=== PATIENT | male | born 1940 | race Caucasian/White ===

== ENCOUNTER → 2021-12-27 12:55 | Outpatient (BNVA) | payer MEDICARE, OTHER, SELFPAY | PROVIDERS: PCP Internal Medicine; Visit Provider Psychiatry & Neurology Neurology | DX: G20 Parkinson's disease (principal); K59.00 Constipation, unspecified | CPT/HCPCS: 99212 ==

== ENCOUNTER → 2022-06-27 11:26 | Outpatient (BNVA) | payer MEDICARE, OTHER, SELFPAY | PROVIDERS: PCP Internal Medicine; Visit Provider Psychiatry & Neurology Neurology | DX: G20 Parkinson's disease (principal); K59.00 Constipation, unspecified | CPT/HCPCS: 99212 ==

== ENCOUNTER 2023-02-05 15:25 | Outpatient (AMB) | payer MEDICARE, OTHER, SELFPAY ==
--- NOTE | 2023-02-05 15:28 | A.OFFVIS_ITS ---
Intake Vital Signs 02/05/23 15:33 Height 5 ft 10 in Weight 141 lb 6 oz BMI 20.3 BP 162/90 H Blood Pressure Location Rt brachial Position Sitting Pulse 74 Pulse Source Pulse Oximeter Pulse Oximetry (%) 97 Oxygen Delivery Method Room Air Intake Visit Reasons: 4 mo follow up parkinson Intake Note: Patient presents for 4 month follow up Allergies No Known Allergies Allergy (Verified 02/05/23 15:35) Medication List - Last Reconciled 02/05/23 by Shannon Jean-Baptiste MD ascorbic acid (vitamin C) mg PO aspirin 325 mg PO DAILY calcium carbonate 500 mg PO BID carbidopa-levodopa 25-100 mg 1 tab PO .5 times a day ujlleayjafiy-Yu-pkzn-minerals tabs PO omega 5-kxl-dbj-fish oil 1,200 (144-216) mg (Fish Oil) caps PO polyethylene glycol 3350 (Miralax) 17 grams PO DAILY rasagiline 1 mg PO DAILY HPI HPI Comments History of Present Illness Details 82y/o male comes for follow up of parkinsons disease.He feels he is wearing off earlier. H eis only sinemet 25/100 1.5tabs tid ( last dose at 7pm and first dose at 8am He feels his meds are wearing off He feels he is slower. No hallucinations, no dizziness. He has dyskinesias but does not bother him. He has some festination and freezing in the morning. He exercises . No sleep issues He is independent in all his ADLs. he has end of dose slowing. Mood is stable No falls His appetite is good Miralax helps with bowel movements. [facility] Medical History BPH (benign prostatic hyperplasia) Parkinson's disease Surgical History H/O prostate biopsy Family History Father Cancer HTN (hypertension) DM (diabetes mellitus) Mother HTN (hypertension) Cancer Brother Cirrhosis Social History Household Members: Spouse Alcohol intake: current Alcohol intake frequency: holidays/special occasions only Patient Tobacco Use Status: Former Tobacco user Physical Exam Vital Signs: Last Vital Signs Pulse 74 02/05/23 15:33 BP 162/90 H 02/05/23 15:33 Pulse Ox 97 02/05/23 15:33 Oxygen Delivery Method Room Air 02/05/23 15:33 BMI result Body Mass Index 20.3 Const General: cooperative, healthy appearing, comfortable and no acute distress Nutritional Appearance: average body habitus Orientation/consciousness: patient oriented x3 Neuro Other: Mild dyskinesias No tremors Carmelo UE- decreased fine finger movements and foot taps.R>L gait- bradykinesia , no arm swing on right Increase tone carmelo R>L General: patient oriented x3 Cranial nerves: Yes Nystagmus not present and Yes Normal facial strength present Motor exam (neuro): 5/5 motor strength present throughout Coordination: qqqega-rx-ayey test normal Assessment & Plan Assessment & Plan (1) Parkinson's disease: Code(s): G20 - Parkinson's disease (2) Constipation: Code(s): K59.00 - Constipation, unspecified Plan Change sinemet 25/100 - 1 tabs 5 times a day [id number]-8pm will consider amantadine azilect 1mg qd Miralax as needed continue exercise Medications: Changed From carbidopa-levodopa 25-100 mg 1.5 tabs PO QID 540 tabs 6RF To carbidopa-levodopa 25-100 mg 1 tab PO .5 times a day 300 tabs 6RF Coding Level of Care Code Est Pt Level 4 (60171) Diagnoses Parkinson's disease G20 Constipation K59.00
[2023-02-05 15:33] VITALS: BP 162/90; PULSE 74; O2SAT 97; BMI 20.3
== END 2023-02-05 15:58 | disposition home or self-care (01) ==
PROVIDERS: Visit Provider Psychiatry & Neurology Neurology
DX: G20 Parkinson's disease (principal); K59.00 Constipation, unspecified
CPT/HCPCS: 99214

== ENCOUNTER → 2023-02-05 15:25 | Outpatient (BNVA) | payer MEDICARE, OTHER, SELFPAY | PROVIDERS: Visit Provider Psychiatry & Neurology Neurology | DX: G20 Parkinson's disease (principal); K59.00 Constipation, unspecified; Z79.82 Long term (current) use of aspirin; Z79.899 Other long term (current) drug therapy | CPT/HCPCS: 99212 ==

== ENCOUNTER 2023-08-07 12:34 | Outpatient (AMB) | payer MEDICARE, OTHER, SELFPAY ==
--- NOTE | 2023-08-07 12:50 | MHC.OFFVIS ---
Intake Vital Signs 08/07/23 12:52 Height 5 ft 10 in Weight 140 lb BMI 20.1 BP 116/68 Blood Pressure Location Rt brachial Position Sitting Respiration 16 Pulse 80 Pulse Source Palpation Intake Visit Reasons: 2mo follow up parkinson-CONFIRMED Intake Note: Pt presents for a 6 month follow up for Parkinson's. Bowstring Maker Required: No Allergies No Known Allergies Allergy (Verified 08/07/23 12:52) Medication List - Last Reconciled 08/07/23 by Shannon Jean-Baptiste MD ascorbic acid (vitamin C) mg PO aspirin 325 mg PO DAILY calcium carbonate 500 mg PO BID carbidopa-levodopa 25-100 mg 1 tab PO .5 times a day diazepam 1/2 tab 30min prior to dental appointment 1/ tab 5 min prior to appointment orally PRN; vvdytljxegai-Ju-qeaz-minerals tabs PO omega 2-orb-zrt-fish oil 1,200 (144-216) mg (Fish Oil) caps PO polyethylene glycol 3350 (Miralax) 17 grams PO DAILY rasagiline 1 mg PO DAILY HPI HPI Comments History of Present Illness Details 82y/o male comes for follow up of parkinsons disease.He has dyskinesias lasting 30 minutes after each dose. He still feels he has early wearing.He has dizziness occaisonally He feels his meds are wearing off He feels he is slower. No hallucinations, no dizziness. He has some festination and freezing in the morning. He exercises . No sleep issues He is independent in all his ADLs. he has end of dose slowing. Mood is stable No falls His appetite is good Miralax helps with bowel movements. [facility] Medical History (Updated 08/07/23 @ 13:03 by Shannon Jean-Baptiste MD) Parkinson's disease with dyskinesia, without mention of fluctuations BPH (benign prostatic hyperplasia) Parkinson's disease Surgical History H/O prostate biopsy Family History Father Cancer HTN (hypertension) DM (diabetes mellitus) Mother HTN (hypertension) Cancer Brother Cirrhosis Social History Household Members: Spouse Alcohol intake: current Alcohol intake frequency: holidays/special occasions only Patient Tobacco Use Status: Former Tobacco user Physical Exam Vital Signs: Last Vital Signs Pulse 80 08/07/23 12:52 Resp 16 08/07/23 12:52 BP 116/68 08/07/23 12:52 BMI result Body Mass Index 20.1 Const General: cooperative, healthy appearing, comfortable and no acute distress Nutritional Appearance: average body habitus Orientation/consciousness: patient oriented x3 Neuro Other: Mild dyskinesias No tremors Carmelo UE- decreased fine finger movements and foot taps.R>L gait- bradykinesia , no arm swing on right Increase tone carmelo R>L General: patient oriented x3 Cranial nerves: Yes Nystagmus not present and Yes Normal facial strength present Motor exam (neuro): 5/5 motor strength present throughout Coordination: eigebe-gh-cltl test normal Assessment & Plan Assessment & Plan (1) Parkinson's disease: Code(s): G20 - Parkinson's disease (2) Constipation: Code(s): K59.00 - Constipation, unspecified (3) Parkinson's disease with dyskinesia, without mention of fluctuations: Code(s): G20.B1 - Parkinson's disease with dyskinesia, without mention of fluctuations Plan Sinemet 25/100 - 1 tabs 5 times a day [id number]-5pm-8pm amantadine 100 mg 1 /2 tab bid azilect 1mg qd Miralax as needed continue exercise Medications: New amantadine HCl 1/2 tab bid orally 2 times a day; 30 tabs 1RF Coding Level of Care Code Est Pt Level 4 (65029) Diagnoses Parkinson's disease G20 Constipation K59.00 Parkinson's disease with dyskinesia, without mention of fluctuations G20.B1
[2023-08-07 12:52] VITALS: BP 116/68; PULSE 80; RESP 16; BMI 20.1
== END 2023-08-07 13:18 | disposition home or self-care (01) ==
PROVIDERS: PCP Internal Medicine; Visit Provider Psychiatry & Neurology Neurology
DX: G20.B2 Parkinson's disease with dyskinesia, with fluctuations (principal); K59.00 Constipation, unspecified
CPT/HCPCS: 99214

== ENCOUNTER → 2023-08-07 12:34 | Outpatient (BNVA) | payer MEDICARE, OTHER, SELFPAY | PROVIDERS: PCP Internal Medicine; Visit Provider Psychiatry & Neurology Neurology | DX: G20.B1 Parkinson's disease with dyskinesia, without mention of fluctuations (principal); K59.00 Constipation, unspecified; Z79.899 Other long term (current) drug therapy | CPT/HCPCS: 99212 ==

== ENCOUNTER 2023-12-06 12:32 | Outpatient (AMB) | payer MEDICARE, OTHER, SELFPAY ==
--- NOTE | 2023-12-06 12:45 | A.OFFVIS_ITS ---
Vital Signs 12/06/23 12:52 Height 5 ft 10 in Weight 144 lb 2 oz BMI 20.7 BP 115/72 Blood Pressure Location Lt brachial Position Sitting Pulse 70 Pulse Source Pulse Oximeter Pulse Oximetry (%) 95 Oxygen Delivery Method Room Air Intake Visit Reasons: 3 mo f/u - LVM w/add Intake Note: Patient presents for 3 month f/u. When taking second pill of Carbidopa-Levodopa felling like the second pill is not working. Wondering if the pills should be rearranged. Allergies No Known Allergies Allergy (Verified 12/06/23 12:52) Medication List - Last Reconciled 12/06/23 by Shannon Jean-Baptiste MD ascorbic acid (vitamin C) mg PO aspirin 325 mg PO DAILY calcium carbonate 500 mg PO BID carbidopa-levodopa 23.75-95 mg ER (Rytary) 2 caps PO TID diazepam 1/2 tab 30min prior to dental appointment 1/ tab 5 min prior to appointment orally PRN; bzsxjhdyacmi-Ri-jrvw-minerals tabs PO omega 0-dlv-meu-fish oil 1,200 (144-216) mg (Fish Oil) caps PO polyethylene glycol 3350 (Miralax) 17 grams PO DAILY rasagiline 1 mg PO DAILY HPI Comments Details: 82y/o male comes for follow up of parkinsons disease.He has dyskinesias lasting 30 minutes after each dose.He was started on amantadine 50mg bid but he did not notice nay improvement but he has more dykinsias ? hallucinations He still feels he has early wearing.He has dizziness occaisonally He feels his meds are wearing off He feels he is slower. No hallucinations, no dizziness. He has some festination and freezing in the morning. He exercises . No sleep issues He is independent in all his ADLs. he has end of dose slowing. Mood is stable No falls His appetite is good Miralax helps with bowel movements. [facility] Medical History (Updated 12/06/23 @ 13:05 by Shannon Jean-Baptiste MD) Parkinson's disease with fluctuating manifestations Parkinson's disease with dyskinesia, without mention of fluctuations BPH (benign prostatic hyperplasia) Parkinson's disease Surgical History H/O prostate biopsy Family History Father Cancer HTN (hypertension) DM (diabetes mellitus) Mother HTN (hypertension) Cancer Brother Cirrhosis Social History Household Members: Spouse Alcohol intake: current Alcohol intake frequency: holidays/special occasions only Patient Tobacco Use Status: Former Tobacco user Physical Exam Vital Signs: Last Vital Signs Pulse 70 12/06/23 12:52 BP 115/72 12/06/23 12:52 Pulse Ox 95 12/06/23 12:52 Oxygen Delivery Method Room Air 12/06/23 12:52 BMI result Body Mass Index 20.7 Const General: cooperative, healthy appearing, comfortable and no acute distress Nutritional Appearance: average body habitus Orientation/consciousness: patient oriented x3 Neuro Other: Moderate dyskinesias - 3 hrs since his last dose No tremors Carmelo UE- decreased fine finger movements and foot taps.R>L gait- bradykinesia , no arm swing on right Increase tone carmelo R>L General: patient oriented x3 Cranial nerves: Yes Nystagmus not present and Yes Normal facial strength present Motor exam (neuro): 5/5 motor strength present throughout Coordination: wobrxu-fn-jeem test normal Assessment & Plan Assessment & Plan (1) Parkinson's disease with dyskinesia, without mention of fluctuations: Code(s): G20.B1 - Parkinson's disease with dyskinesia, without mention of fluctuations Category: Medical (2) Parkinson's disease with fluctuating manifestations: Code(s): G20.A2 - Parkinson's disease without dyskinesia, with fluctuations Category: Medical Plan I will trial patient on Rytary 23.75/95 2 caps tid to improve dyskinesias and fluctuations D/CSinemet 25/100 - 1 tabs 5 times a day [id number]-5pm-8pm D/C amantadine 100 mg 1 /2 tab bid azilect 1mg qd Miralax as needed continue exercise Medications: New carbidopa-levodopa 23.75-95 mg ER (Rytary) divide evenly over waking hours 2 caps PO TID 180 caps 6RF Discontinued carbidopa-levodopa 25-100 mg Discontinued Reason: Doctor's Order 1 tab PO .5 times a day 300 tabs 6RF amantadine HCl Discontinued Reason: Doctor's Order 1/2 tab bid orally 2 times a day; 30 tabs 6RF Coding Level of Care Code Est Pt Level 4 (46807) Complex EM visit Add On G2211 Diagnoses Parkinson's disease with dyskinesia, without mention of fluctuations G20.B1 Parkinson's disease with fluctuating manifestations G20.A2
[2023-12-06 12:52] VITALS: BP 115/72; PULSE 70; O2SAT 95; BMI 20.7
== END 2023-12-06 13:16 | disposition home or self-care (01) ==
PROVIDERS: PCP Internal Medicine; Visit Provider Psychiatry & Neurology Neurology
DX: G20.B1 Parkinson's disease with dyskinesia, without mention of fluctuations (principal); G20.A2 Parkinson's disease without dyskinesia, with fluctuations
CPT/HCPCS: 99214; G2211

== ENCOUNTER → 2023-12-06 12:32 | Outpatient (BNVA) | payer MEDICARE, OTHER, SELFPAY | PROVIDERS: PCP Internal Medicine; Visit Provider Psychiatry & Neurology Neurology | DX: G20.B2 Parkinson's disease with dyskinesia, with fluctuations (principal) | CPT/HCPCS: 99212 ==

== ENCOUNTER 2024-02-06 09:32 | Outpatient (AMB) | payer MEDICARE, OTHER, SELFPAY ==
--- NOTE | 2024-02-06 09:43 | A.OFFVIS_ITS ---
Vital Signs 02/06/24 09:45 Height 5 ft 10 in Weight 145 lb BMI 20.8 BP 132/68 Blood Pressure Location Rt brachial Position Sitting Respiration 16 Pulse 68 Pulse Source Pulse Oximeter Pulse Oximetry (%) 96 Oxygen Delivery Method Room Air Intake Visit Reasons: 2 mo f/u - Confirmed Intake Note: Pt presents for 2 month follow up for Parkinson's. Outreach Consultant Required: No Allergies No Known Allergies Allergy (Verified 02/06/24 09:43) HPI Comments Details: 83y/o male comes for follow up of parkinsons disease. He is on rytary 3 caps tid which ahs helpe dhis fluctuations and wearing off. But after his first dose in the morning it takes 30-60 minutes for him to respond. Dyskinesias are milder.. No hallucinations, no dizziness. He has some festination and freezing in the morning. He exercises . No sleep issues He is independent in all his ADLs. he has end of dose slowing. Mood is stable No falls His appetite is good Miralax helps with bowel movements. [facility] Medical History Parkinson's disease with fluctuating manifestations Parkinson's disease with dyskinesia, without mention of fluctuations BPH (benign prostatic hyperplasia) Parkinson's disease Surgical History H/O prostate biopsy Family History Father Cancer HTN (hypertension) DM (diabetes mellitus) Mother HTN (hypertension) Cancer Brother Cirrhosis Social History Household Members: Spouse Alcohol intake: current Alcohol intake frequency: holidays/special occasions only Patient Tobacco Use Status: Former Tobacco user Physical Exam Vital Signs: Last Vital Signs Pulse 68 02/06/24 09:45 Resp 16 02/06/24 09:45 BP 132/68 02/06/24 09:45 Pulse Ox 96 02/06/24 09:45 Oxygen Delivery Method Room Air 02/06/24 09:45 BMI result Body Mass Index 20.8 Const General: cooperative, healthy appearing, comfortable and no acute distress Nutritional Appearance: average body habitus Orientation/consciousness: patient oriented x3 Neuro Other: Mild dyskinesias - No tremors Carmelo UE- decreased fine finger movements and foot taps.R>L gait- good stride mild slowness , mild decreased arm swing on the right Increase tone carmelo R>L General: patient oriented x3 Cranial nerves: Yes Nystagmus not present and Yes Normal facial strength present Motor exam (neuro): 5/5 motor strength present throughout Coordination: vqcpaw-nh-kgfd test normal Assessment & Plan Assessment & Plan (1) Parkinson's disease with dyskinesia, without mention of fluctuations: Code(s): G20.B1 - Parkinson's disease with dyskinesia, without mention of fluctuations Category: Medical (2) Parkinson's disease with fluctuating manifestations: Code(s): G20.A2 - Parkinson's disease without dyskinesia, with fluctuations Category: Medical Plan Continue Rytary 23.75/95 3 caps tid to improve dyskinesias and fluctuations azilect 1mg qd Miralax as needed continue exercise Coding Level of Care Code Est Pt Level 4 (61885) Complex EM visit Add On G2211 Diagnoses Parkinson's disease with dyskinesia, without mention of fluctuations G20.B1 Parkinson's disease with fluctuating manifestations G20.A2
[2024-02-06 09:45] VITALS: BP 132/68; PULSE 68; RESP 16; O2SAT 96; BMI 20.8
== END 2024-02-06 10:26 | disposition home or self-care (01) ==
PROVIDERS: PCP Internal Medicine; Visit Provider Psychiatry & Neurology Neurology
DX: G20.B1 Parkinson's disease with dyskinesia, without mention of fluctuations (principal); G20.A2 Parkinson's disease without dyskinesia, with fluctuations
CPT/HCPCS: 99214; G2211

== ENCOUNTER → 2024-02-06 09:32 | Outpatient (BNVA) | payer MEDICARE, OTHER, SELFPAY | PROVIDERS: PCP Internal Medicine; Visit Provider Psychiatry & Neurology Neurology | DX: G20.B2 Parkinson's disease with dyskinesia, with fluctuations (principal); Z79.899 Other long term (current) drug therapy | CPT/HCPCS: 99212 ==

== ENCOUNTER 2024-08-14 14:01 | Outpatient (AMB) | payer MEDICARE, OTHER, SELFPAY ==
--- NOTE | 2024-08-14 14:02 | MHC.OFFVIS ---
Vital Signs 08/14/24 14:03 Height 5 ft 10 in Weight 137 lb BMI 19.7 BP 140/90 H Blood Pressure Location Rt brachial Position Sitting Intake Visit Reasons: Follow up Intake Note: Patient presents for follow up Allergies No Known Allergies Allergy (Verified 08/14/24 14:11) Medication List - Last Reconciled 08/14/24 by Shannon Jean-Baptiste MD ascorbic acid (vitamin C) mg PO calcium carbonate 500 mg PO BID carbidopa-levodopa 23.75-95 mg ER (Rytary) 3- 2-2-2 orally 4 times a day; divide evenly over waking hours diazepam 1/2 tab 30min prior to dental appointment 1/ tab 5 min prior to appointment orally PRN; xdcaigxppehd-Kd-lwjv-minerals tabs PO omega 4-bps-hif-fish oil 1,200 (144-216) mg (Fish Oil) caps PO polyethylene glycol 3350 (Miralax) 17 grams PO DAILY rasagiline 1 mg PO DAILY tadalafil 2.5 mg PO DAILY HPI Comments Details: 83y/o male comes for follow up of parkinsons disease.He is doing good. He is on rytary 23/95 3 caps tid which has his fluctuations and wearing off. But after his first dose in the morning it takes 30-60 minutes for him to respond.He takes 8am-2pm and 7pm Dyskinesias are milder.. No hallucinations, no dizziness. He has some festination and freezing in the morning. He exercises . He sleeps good and takes along nap during daytime. He is independent in all his ADLs. Mood is stable No falls His appetite is good Miralax helps with bowel movements. [facility] Medical History Parkinson's disease with fluctuating manifestations Parkinson's disease with dyskinesia, without mention of fluctuations BPH (benign prostatic hyperplasia) Parkinson's disease Surgical History H/O prostate biopsy Family History Father Cancer HTN (hypertension) DM (diabetes mellitus) Mother HTN (hypertension) Cancer Brother Cirrhosis Social History Household Members: Spouse Alcohol intake: current Alcohol intake frequency: holidays/special occasions only Patient Tobacco Use Status: Former Tobacco user Physical Exam Vital Signs: Last Vital Signs BP 140/90 H 08/14/24 14:03 BMI result Body Mass Index 19.7 Const General: cooperative, healthy appearing, comfortable and no acute distress Nutritional Appearance: average body habitus Orientation/consciousness: patient oriented x3 Neuro Other: No dyskinesias - No tremors Carmelo UE- decreased fine finger movements and foot taps.R>L gait- good stride mild slowness , mild decreased arm swing on the right Increase tone carmelo R>L General: patient oriented x3 Cranial nerves: Yes Nystagmus not present and Yes Normal facial strength present Motor exam (neuro): 5/5 motor strength present throughout Coordination: hjqwtz-al-jyjq test normal Assessment & Plan Assessment & Plan (1) Parkinson's disease with fluctuating manifestations: Code(s): G20.A2 - Parkinson's disease without dyskinesia, with fluctuations Category: Medical Qualifiers: Dyskinesia presence: with dyskinesia Qualified Code(s): G20.B2 - Parkinson's disease with dyskinesia, with fluctuations Plan Change Rytary 23.75/95- 3-2-2-2- to improve dyskinesias and fluctuations azilect 1mg qd Miralax as needed continue exercise Medications: Changed From carbidopa-levodopa 23.75-95 mg ER (Rytary) divide evenly over waking hours 3 caps PO TID 180 caps 6RF To carbidopa-levodopa 23.75-95 mg ER (Rytary) 3- 2-2-2 orally 4 times a day; divide evenly over waking hours 180 caps 6RF Coding Level of Care Code Est Pt Level 4 (27193) Complex EM visit Add On G2211 Diagnoses Parkinson's disease with dyskinesia and fluctuating manifestations G20.B2 Dyskinesia presence: with dyskinesia
[2024-08-14 14:03] VITALS: BP 140/90; BMI 19.7
== END 2024-08-14 14:30 | disposition home or self-care (01) ==
PROVIDERS: PCP Internal Medicine; Visit Provider Psychiatry & Neurology Neurology
DX: G20.B2 Parkinson's disease with dyskinesia, with fluctuations (principal)
CPT/HCPCS: 99214; G2211

== ENCOUNTER → 2024-08-14 14:01 | Outpatient (BNVA) | payer MEDICARE, OTHER, SELFPAY | PROVIDERS: PCP Internal Medicine; Visit Provider Psychiatry & Neurology Neurology | DX: G20.B2 Parkinson's disease with dyskinesia, with fluctuations (principal) | CPT/HCPCS: 99212 ==

== ENCOUNTER 2024-11-27 10:45 | Outpatient (AMB) | payer MEDICARE, OTHER, SELFPAY ==
--- NOTE | 2024-11-27 10:44 | A.OFFVIS_ITS ---
Intake Visit Reasons: Follow up after hosp discharge-Conf Intake Note: Patient presents for follow after hospital discharge Allergies No Known Allergies Allergy (Verified 11/27/24 10:46) HPI Comments Details: 83y/o male calls for follow up of parkinsons disease after recent hospitalizations. .He was hospitalized for left hip fracture ( Aug 2024 ) , flu, kidney infection - he was at [facility] - unfortunately he received a higher dose of carbidopa /levodopa and he developed severe psychosis. Once his medications were decreased his psychosis resolved. He is on rytary 3 caps qid now. But every time he stands his blood pressure drops and he has not been able to walk Dyskinesias are milder.. No hallucinationsHe also ahs a catheter now . 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 He sleeps good and takes along nap during daytime. Mood is stable His appetite is good Miralax helps with bowel movements. [facility] Medical History Parkinson's disease with fluctuating manifestations Parkinson's disease with dyskinesia, without mention of fluctuations BPH (benign prostatic hyperplasia) Parkinson's disease Surgical History H/O prostate biopsy Family History Father Cancer HTN (hypertension) DM (diabetes mellitus) Mother HTN (hypertension) Cancer Brother Cirrhosis Social History Household Members: Spouse Alcohol intake: current Alcohol intake frequency: holidays/special occasions only Patient Tobacco Use Status: Former Tobacco user Physical Exam Const General: cooperative Orientation/consciousness: patient oriented x3 Neuro General: patient oriented x3 Telehealth Telehealth Telehealth Platform: Telephone Location of provider rendering services: practice address Location of patient: address on file Patient Identification confirmed using: Name, : Yes Telehealth method: voice only Patient verbally consented to treatment: Yes Patient verbally consented to billing insurance company: Yes Patient informed of any privacy concerns related to visit: Yes Minutes spent on Phone/Video with Pt.: 22 Assessment & Plan Assessment & Plan (1) Parkinson's disease with fluctuating manifestations: Code(s): G20.A2 - Parkinson's disease without dyskinesia, with fluctuations Category: Medical Qualifiers: Dyskinesia presence: with dyskinesia Qualified Code(s): G20.B2 - Parkinson's disease with dyskinesia, with fluctuations Plan Change [facility] 23.75/95- 3-2-2-2- to improve dyskinesias and fluctuations azilect 1mg qd Miralax as needed continue exercise Coding Level of Care Code Tele Est Pt Level 4 (31326) Diagnoses Parkinson's disease with dyskinesia and fluctuating manifestations G20.B2 Dyskinesia presence: with dyskinesia Time Spent (min) 22
--- OUTSIDE RECORDS SUMMARY | 2024-11-27 12:12 | XMS_ITS | Clinical Summary ---
Author Organization Unknown Care Team Providers Care Tunnel Elastic Operator Zigzag Name Role Phone RENE FORMAN Unavailable Unavaila lauren BARBOSA RN, DARÍO Unavailable Unavailable PENDRISS RETARDER OPERATOR, KURT Unavailable Unavailable DUSTIN PT, LEA Unavailable Unavailable FECTEAU OIL DELIVERER, VAL Unavailable Unavailable STARSIAK OT, YOVANI Unavailable Unavailabl e Payers Payer Name Policy Type Policy Number Effective Date Expira tion Date MEDICARE.NGS.PDGM [id number] Problems Condition Name Condition Details Condition Category Status Onset Date Resolution Date Last Treatment Date Treating Clinician Comments URINARY TRACT INFECTION, SITE NOT SPECIFIED Active 11-10 00:00: 00 BACTERIAL INFECTION, UNSPECIFIED Active 11-23 00:00: 00 HYPO-OSMOLAL ITY AND HYPONATREMIA Active 11-23 00:00: 00 REM SLEEP BEHAVIOR DISORDER Active 11-23 00:00: 00 ORTHOSTATIC HYPOTENSION Active 11-23 00:00: 00 UNSPECIFIED PROTEIN-DALTON SERGEI MALNUTRITION Active 11-23 00:00: 00 UNSP FRACTURE OF UNSP PUBIS, SUBS FOR FX W ROUTN HEAL Active 11-23 00:00: 00 OTHER TOXIC ENCEPHALOPAT HY Active 09-26 00:00: 00 OBSTRUCTIVE AND REFLUX UROPATHY, UNSPECIFIED Active 09-26 00:00: 00 PARKINSON'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, W/O MENTION OF FLUCTUATIONS Active 07-23 00:00: 00 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, UNSP SEVERT, WITH AGITATION Active 07-23 00:00: 00 BENIGN PROSTATIC HYPERPLASIA WITH LOWER URINARY TRACT SYMP Active - 00:00: 00 OTHER RETENTION OF URINE Active - 00:00: 00 HEMATURIA, UNSPECIFIED Active 07-23 00:00: 00 NONRHEUMATIC AORTIC (VALVE) STENOSIS Active 07-23 00:00: 00 ANEMIA, UNSPECIFIED Active 07-23 00:00: 00 DYSPHAGIA, OROPHARYNGEA L PHASE Active 07-23 00:00: 00 JAIL (CURRENT) USE OF ASPIRIN Active 07-23 00:00: 00 PERSONAL HISTORY OF NICOTINE DEPENDENCE Active 07-23 00:00: 00 HISTORY OF FALLING Active 07-23 00:00: 00 Allergies, Adverse Reactions, Alerts Allergy Name Allergy Type Status Severity Reaction(s) Onset Date Inactive Date Treating Clinician Comments NO KNOWN ALLERGIES Propensity to adverse reactions Active 11-24 14:24: 49 Vital Signs Vital Name Observation Time Observation Value Commen ts Temperature 2024-11-27 10:16:00.000 96.9 [degF] Temperature 2024-11-24 14:51:00.000 97.3 [degF] BMI (%) 2024-11-24 14:39:33.000 17 kg/m2 Height 2024-11-24 14:39:05.000 68 [in_us] Pulse 2024-11-27 10:16:00.000 64 /min Pulse 2024-11-24 14:51:00.000 84 /min O2 Saturation (%) 2024-11-27 10:16:00.000 99 % O2 Saturation (%) 2024-11-24 14:51:00.000 97 % Respirations 2024-11-27 10:16:00.000 16 /min Respirations 2024-11-24 14:51:00.000 18 /min Weight (lbs) 2024-11-24 14:39:33.000 117 [lb_av] Systolic Blood Pressure 2024-11-27 10:16:00.000 92 mm[ Hg] Systolic Blood Pressure 2024-11-24 14:51:00.000 94 mm[ Hg] Diastolic Blood Pressure 2024-11-27 10:16:00.000 58 mm [Hg] Diastolic Blood Pressure 2024-11-24 14:51:00.000 62 mm [Hg] Plan of Treatment Planned Activity Planned Date Details Comments Future Scheduled Test RN TO OBSE RVE, ASSESS, EVALUATE, AND DEVELOP AN INDIVIDUALIZED PLAN OF CARE. AGENCY MAY ACCEPT ORDERS FROM CONSULTING PHYSICIANS. RN TO OBSERVE AND ASSESS, RETARDER OPERATOR/BEHAVIORAL MEDICAL DIRECTOR TO OBSERVE FOR RISK FOR FALLS AND INSTRUCT IN FALL PREVENTION, HOME SAFETY, MEDICATION MANAGEMENT, INFECTION PREVENTION, AND NUTRITION MANAGEMENT. RN/RETARDER OPERATOR/BEHAVIORAL MEDICAL DIRECTOR NURSE MAY PERFORM O2 SATURATION LEVEL ON ADMISSION AND PRN FOR RN TO ASSESS/RETARDER OPERATOR TO OBSERVE PATIENT, WITH NOTIFICATION TO THE PHYSICIAN IF SATURATION IS 90% IN THE ABSENCE OF MORE SPECIFIC PARAMETERS FROM THE PHYSICIAN. AGENCY MAY PERFORM A RESUMPTION OF CARE VISIT FOLLOWING ANY HOSPITAL ADMISSION. RN/RETARDER OPERATOR/BEHAVIORAL MEDICAL DIRECTOR TO MONITOR CO-MORBID CONDITIONS LISTED ON THE PLAN OF CARE AND ANY NEW CONDITIONS THAT PRESENT THEMSELVES DURING THIS EPISODE TO IDENTIFY CHANGES AND INTERVENE TO MINIMIZE COMPLICATIONS. [code = RN TO OBSERVE, ASSESS, EVALUATE, AND DEVELOP AN INDIVIDUALIZED PLAN OF CARE. AGENCY MAY ACCEPT ORDERS FROM CONSULTING PHYSICIANS. RN TO OBSERVE AND ASSESS, RETARDER OPERATOR/BEHAVIORAL MEDICAL DIRECTOR TO OBSERVE FOR RISK FOR FALLS AND INSTRUCT IN FALL PREVENTION, HOME SAFETY, MEDICATION MANAGEMENT, INFECTION PREVENTION, AND NUTRITION MANAGEMENT. RN/RETARDER OPERATOR/BEHAVIORAL MEDICAL DIRECTOR NURSE MAY PERFORM O2 SATURATION LEVEL ON ADMISSION AND PRN FOR RN TO ASSESS/RETARDER OPERATOR TO OBSERVE PATIENT, WITH NOTIFICATION TO THE PHYSICIAN IF SATURATION IS 90% IN THE ABSENCE OF MORE SPECIFIC PARAMETERS FROM THE PHYSICIAN. AGENCY MAY PERFORM A RESUMPTION OF CARE VISIT FOLLOWING ANY HOSPITAL ADMISSION. RN/RETARDER OPERATOR/BEHAVIORAL MEDICAL DIRECTOR TO MONITOR CO-MORBID CONDITIONS LISTED ON THE PLAN OF CARE AND ANY NEW CONDITIONS THAT PRESENT THEMSELVES DURING THIS EPISODE TO IDENTIFY CHANGES AND INTERVENE TO MINIMIZE COMPLICATIONS.] Future Scheduled Test MEDICATION MANAGEMENT; RN/RETARDER OPERATOR/BEHAVIORAL MEDICAL DIRECTOR TO REVIEW MEDICATIONS FOR INTERACTIONS, EFFECTIVENESS OF DRUG THERAPY, AND SIGNS/SYMPTOMS OF ADVERSE REACTIONS. MAY INSTRUCT AND REINFORCE MEDICATION TEACHING RELATED TO THE USE OF MEDICATIONS, DOSAGE, FREQUENCY, PURPOSE, SIDE EFFECTS, AND TO REPORT COMPLICATIONS. [code = MEDICATION MANAGEMENT; RN/RETARDER OPERATOR/BEHAVIORAL MEDICAL DIRECTOR TO REVIEW MEDICATIONS FOR INTERACTIONS, EFFECTIVENESS OF DRUG THERAPY, AND SIGNS/SYMPTOMS OF ADVERSE REACTIONS. MAY INSTRUCT AND REINFORCE MEDICATION TEACHING RELATED TO THE USE OF MEDICATIONS, DOSAGE, FREQUENCY, PURPOSE, SIDE EFFECTS, AND TO REPORT COMPLICATIONS.] Future Scheduled Test RISK FOR H OSPITALIZATION; RN TO ASSESS/TEACH, BEHAVIORAL MEDICAL DIRECTOR/RETARDER OPERATOR TO OBSERVE/TEACH PATIENT/CAREGIVER ON RISK FOR HOSPITALIZATION/EMERGENCY ROOM VISITS, TEACH SIGNS AND SYMPTOMS THAT PUT PATIENT AT RISK, WHEN TO NOTIFY NURSE/PHYSICIAN OF COMPLICATIONS/DECLINE, AND WHEN TO CALL 911. [code = RISK FOR HOSPITALIZATION; RN TO ASSESS/TEACH, BEHAVIORAL MEDICAL DIRECTOR/RETARDER OPERATOR TO OBSERVE/TEACH PATIENT/CAREGIVER ON RISK FOR HOSPITALIZATION/EMERGENCY ROOM VISITS, TEACH SIGNS AND SYMPTOMS THAT PUT PATIENT AT RISK, WHEN TO NOTIFY NURSE/PHYSICIAN OF COMPLICATIONS/DECLINE, AND WHEN TO CALL 911.] Future Scheduled Test RN/RETARDER OPERATOR/BEHAVIORAL MEDICAL DIRECTOR TO PERFORM/TEACH PATIENT/CAREGIVER WOUND CARE TO STAGE 2 COCCYX, CAREGIVER/FAMILY TO CLEANSE WITH NS AND APPLY BARRIER CREAM. [code = RN/RETARDER OPERATOR/BEHAVIORAL MEDICAL DIRECTOR TO PERFORM/TEACH PATIENT/CAREGIVER WOUND CARE TO STAGE 2 COCCYX, CAREGIVER/FAMILY TO CLEANSE WITH NS AND APPLY BARRIER CREAM.] Future Scheduled Test PAIN MANAG EMENT; RN TO ASSESS AND TEACH, BEHAVIORAL MEDICAL DIRECTOR/RETARDER OPERATOR TO OBSERVE AND TEACH AND PROVIDE EDUCATION ON PAIN MANAGEMENT TECHNIQUES. [code = PAIN MANAGEMENT; RN TO ASSESS AND TEACH, BEHAVIORAL MEDICAL DIRECTOR/RETARDER OPERATOR TO OBSERVE AND TEACH AND PROVIDE EDUCATION ON PAIN MANAGEMENT TECHNIQUES.] Future Scheduled Test FALL REDUC TION MANAGEMENT; RN TO ASSESS AND OBSERVE, RETARDER OPERATOR/BEHAVIORAL MEDICAL DIRECTOR TO OBSERVE FALL RISK FACTORS AND EDUCATE PATIENT/CAREGIVER ON STRATEGIES TO MINIMIZE THE RISK OF FALLING. [code = FALL REDUCTION MANAGEMENT; RN TO ASSESS AND OBSERVE, RETARDER OPERATOR/BEHAVIORAL MEDICAL DIRECTOR TO OBSERVE FALL RISK FACTORS AND EDUCATE PATIENT/CAREGIVER ON STRATEGIES TO MINIMIZE THE RISK OF FALLING.] Future Scheduled Test PHYSICAL T HERAPIST TO EVALUATE FOR BALANCE, STRENGTHENING AND ENDURANCE. [code = PHYSICAL THERAPIST TO EVALUATE FOR BALANCE, STRENGTHENING AND ENDURANCE. ] Future Scheduled Test OCCUPATION AL THERAPIST TO EVALUATE FOR ADL SAFETY. [code = OCCUPATIONAL THERAPIST TO EVALUATE FOR ADL SAFETY. ] Future Scheduled Test GENITOURIN MARY ELLEN MANAGEMENT; RN TO ASSESS AND TEACH, RETARDER OPERATOR/BEHAVIORAL MEDICAL DIRECTOR TO OBSERVE AND TEACH RELATED TO ALTERED GENITOURINARY STATUS TO MINIMIZE COMPLICATIONS AND REDUCE HOSPITALIZATION. [code = GENITOURINARY MANAGEMENT; RN TO ASSESS AND TEACH, RETARDER OPERATOR/BEHAVIORAL MEDICAL DIRECTOR TO OBSERVE AND TEACH RELATED TO ALTERED GENITOURINARY STATUS TO MINIMIZE COMPLICATIONS AND REDUCE HOSPITALIZATION.] Future Scheduled Test INDWELLING URINARY CATHETER MANAGEMENT; RN/RETARDER OPERATOR/BEHAVIORAL MEDICAL DIRECTOR TO INSTRUCT PATIENT / CAREGIVER ON INDWELLING URINARY CATHETER MANAGEMENT INCLUDING CARE OF CATHETER, SIGN AND SYMPTOMS OF COMPLICATIONS, PERINEAL CARE, TUBE AND BAG PLACEMENT, PREVENTION OF INFECTION AND SKIN BREAKDOWN. [code = INDWELLING URINARY CATHETER MANAGEMENT; RN/RETARDER OPERATOR/BEHAVIORAL MEDICAL DIRECTOR TO INSTRUCT PATIENT / CAREGIVER ON INDWELLING URINARY CATHETER MANAGEMENT INCLUDING CARE OF CATHETER, SIGN AND SYMPTOMS OF COMPLICATIONS, PERINEAL CARE, TUBE AND BAG PLACEMENT, PREVENTION OF INFECTION AND SKIN BREAKDOWN.] Future Scheduled Test PRN VISITS ; NUMBER OF RN/RETARDER OPERATOR/BEHAVIORAL MEDICAL DIRECTOR VISITS: 3 RN/RETARDER OPERATOR/BEHAVIORAL MEDICAL DIRECTOR TO PERFORM: /SHORT ASSESSMENT FOR THE FOLLOWING REASONS: STATUS CHANGES/SHORT COMPLICATIONS [code = PRN VISITS; NUMBER OF RN/RETARDER OPERATOR/BEHAVIORAL MEDICAL DIRECTOR VISITS: 3 RN/RETARDER OPERATOR/BEHAVIORAL MEDICAL DIRECTOR TO PERFORM: /SHORT ASSESSMENT FOR THE FOLLOWING REASONS: STATUS CHANGES/SHORT COMPLICATIONS] Future Scheduled Test MALNUTRITI ON MANAGEMENT; RN TO ASSESS AND TEACH, BEHAVIORAL MEDICAL DIRECTOR/RETARDER OPERATOR TO OBSERVE AND TEACH AND INSTRUCT PATIENT / CAREGIVER ON INTERVENTIONS TO IMPROVE NUTRITIONAL INTAKE AND PATIENT WELLBEING. [code = MALNUTRITION MANAGEMENT; RN TO ASSESS AND TEACH, BEHAVIORAL MEDICAL DIRECTOR/RETARDER OPERATOR TO OBSERVE AND TEACH AND INSTRUCT PATIENT / CAREGIVER ON INTERVENTIONS TO IMPROVE NUTRITIONAL INTAKE AND PATIENT WELLBEING.] Goal Patient Goal - T O HELP ASSIST FAMILY WITH KEEPING PATIENT SAFE AT HOME. Goal Provider Goal - A PLAN OF CARE WILL BE ESTABLISHED THAT MEETS THE PATIENTS NEEDS. PATIENT WILL DEMONSTRATE OXYGEN SATURATION WITHIN NORMAL LIMITS OR PATIENTS OPTIMAL LEVEL ESTABLISHED BY THE PHYSICIAN THROUGHOUT CARE. CHANGES TO CO-MORBID CONDITIONS AND ANY NEW CONDITIONS WILL BE IDENTIFIED AND REPORTED TO THE PHYSICIAN. Goal Provider Goal - PATIENT/CAREGIVER TO VERBALIZE, AND CONSISTENTLY DEMONSTRATE EFFECTIVE, SAFE MANAGEMENT OF MEDICATION INCLUDING KNOWLEDGE OF EFFECTIVENESS, POTENTIAL SIDE EFFECTS AND DRUG REACTIONS AND WHEN TO CONTACT THE APPROPRIATE CARE PROVIDER. PATIENT/CAREGIVER WILL BE ABLE TO VERBALIZE UNDERSTANDING OF MEDICATION REGIMEN AND ACCURATELY TAKE MEDICATIONS PRESCRIBED WITHOUT ADVERSE EFFECTS BY END OF EPISODE. Goal Provider Goal - PATIENT/CAREGIVER WILL VERBALIZE UNDERSTANDING OF SIGNS AND SYMPTOMS THAT PUT THE PATIENT AT RISK FOR HOSPITALIZATION /EMERGENCY ROOM VISITS, WHEN TO NOTIFY NURSE/PHYSICIAN OF COMPLICATIONS/DECLINE AND WHEN TO CALL 911. Goal Provider Goal - PATIENT / CAREGIVER WILL VERBALIZE/DEMONSTRATE ABILITY TO PERFORM WOUND CARE. WOUND STATUS WILL IMPROVE EVIDENCED BY A DECREASE IN SIZE, DRAINAGE, ABSENCE OF INFECTION, AND DECREASED PAIN BY END OF EPISODE. Goal Provider Goal - PATIENT / CAREGIVER WILL VERBALIZE / DEMONSTRATE UNDERSTANDING OF PAIN CONTROL MEASURES BY END OF EPISODE. Goal Provider Goal - PATIENT/CAREGIVER WILL VERBALIZE/DEMONSTRATE UNDERSTANDING OF FALL RISK FACTORS AND IMPLEMENT STRATEGIES TO MINIMIZE FALL RISK. PATIENT/CAREGIVER WILL VERBALIZE/DEMONSTRATE AN ABILITY TO ADHERE TO FALL REDUCTION SELF-MANAGEMENT AND LIFE-STYLE CHANGES BY END OF EPISODE. Goal Provider Goal - Goal Provider Goal - Goal Provider Goal - PATIENT / CAREGIVER WILL VERBALIZE/DEMONSTRATE UNDERSTANDING OF MEASURES TO MANAGE ALTERED GENITOURINARY STATUS BY END OF EPISODE. Goal Provider Goal - PATIENT/CAREGIVER WILL VERBALIZE/DEMONSTRATE UNDERSTANDING OF CARE AND MANAGEMENT OF INDWELLING CATHETER BY END OF EPISODE. Goal Provider Goal - Goal Provider Goal - PATIENT / CAREGIVER WILL VERBALIZE/DEMONSTRATE APPROPRIATE METHODS TO IMPROVE NUTRITIONAL STATUS BY END OF EPISODE. Encounters Start Date/Time End Date/Time Encounter Type Admission Type Attending [facility] Department Encounter ID Discharge Date Discharge Status Discharge Condition Discharge Reason Percent Goals Met 2024-11-24 00:00:00 2025-01-22 00:00:00 Outpatient NEW ADMISSION DARÍO BARBOSA [facility] [id number] 41.67
== END 2024-11-27 11:45 | disposition home or self-care (01) ==
LOC: HO.HSMS 10:45
PROVIDERS: PCP Internal Medicine; Visit Provider Psychiatry & Neurology Neurology
DX: G20.B2 Parkinson's disease with dyskinesia, with fluctuations (principal); Z09 Encounter for follow-up examination after completed treatment for conditions other than malignant neoplasm
CPT/HCPCS: 99214

== ENCOUNTER → 2024-11-27 10:45 | Outpatient (BNVA) | payer MEDICARE, OTHER, SELFPAY | PROVIDERS: PCP Internal Medicine; Visit Provider Psychiatry & Neurology Neurology ==

== ENCOUNTER 2025-06-11 11:28 | Outpatient (AMB) | payer MEDICARE, OTHER, SELFPAY ==
[2025-06-11 11:21] VITALS: BP 122/76; PULSE 87; O2SAT 99
--- NOTE | 2025-06-11 11:21 | A.OFFVIS_ITS ---
Vital Signs 06/11/25 11:21 Height 5 ft 10 in BP 122/76 Blood Pressure Location Lt brachial Position Sitting Pulse 87 Pulse Source Pulse Oximeter Pulse Oximetry (%) 99 Oxygen Delivery Method Room Air Intake Visit Reasons: Urgent - ok per MD Intake Note: Follow up Parkinson's disease with dyskinesia and fluctuating manifestations Financial Institution President Required: No Accompanied by: and daughter Allergies No Known Allergies Allergy (Verified 06/11/25 11:21) Medication List - Last Reconciled 06/11/25 by Shannon Jean-Baptiste MD ascorbic acid (vitamin C) mg PO calcium carbonate 500 mg PO BID carbidopa-levodopa 23.75-95 mg ER (Rytary) 3-2-3-2 orally 4 times a day; 3-2-3-2 docusate sodium (Colace) 100 mg PO DAILY folic acid 1 mg PO DAILY midodrine 5 mg PO TID zpjqcaeqqgay-Cp-avgt-minerals tabs PO omega 8-zaq-bxq-fish oil 1,200 (144-216) mg (Fish Oil) caps PO trazodone 100 mg PO BEDTIME PRN HPI Comments Details: 84y/o male comes for urgent follow up of parkinsons disease .He reports worsening in the past 3 weeks prior to that he was doing well. He is slower, has freezing episodes and very fatigued.He has dizziness when he first gets up. he had 1 falls since last visit- he tripped on something.He sleeps good No hallucinations He drinks water - 7-8 cups he had 2 more bladder infections since then his bowel movements are better with colace - he had incontinence when he was on miralax. He is moving to an Assisted Living facility next week. History from 12/14 visit- .He was hospitalized for left hip fracture ( Aug 2024 ) , flu, kidney infection - he was at [facility] - unfortunately he received a higher dose of carbidopa /levodopa and he developed severe psychosis. Once his medications were decreased his psychosis resolved. He is on rytary 23/95 3 caps qid now. But every time he stands his blood pressure drops and he has not been able to walk Dyskinesias are milder.. No hallucinationsHe also ahs a catheter now . 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 He sleeps good and takes along nap during daytime. Mood is stable His appetite is good Miralax helps with bowel movements. [facility] Medical History Parkinson's disease with fluctuating manifestations Parkinson's disease with dyskinesia, without mention of fluctuations BPH (benign prostatic hyperplasia) Parkinson's disease Surgical History H/O prostate biopsy Family History Father Cancer HTN (hypertension) DM (diabetes mellitus) Mother HTN (hypertension) Cancer Brother Cirrhosis Social History Household Members: Spouse Alcohol intake: current Alcohol intake frequency: holidays/special occasions only Patient Tobacco Use Status: Former Tobacco user Physical Exam Vital Signs: Last Vital Signs Pulse 87 06/11/25 11:21 BP 122/76 06/11/25 11:21 Pulse Ox 99 06/11/25 11:21 Oxygen Delivery Method Room Air 06/11/25 11:21 Const General: cooperative, healthy appearing, comfortable and no acute distress Nutritional Appearance: average body habitus Orientation/consciousness: patient oriented x3 Neuro Other: No dyskinesias - No tremors Sanjay UE-severely decreased fine finger movements and foot taps.R>L gait- short stride ,severe slowness , no arm swings - severe freezing Increase tone sanjay R>L General: patient oriented x3 Cranial nerves: Yes Nystagmus not present and Yes Normal facial strength present Motor exam (neuro): 5/5 motor strength present throughout Coordination: gtjxuq-uu-buqs test normal Assessment & Plan Assessment & Plan (1) Parkinson's disease with fluctuating manifestations: Comment: progression - severe bradyphrenia bradykinesia Code(s): G20.A2 - Parkinson's disease without dyskinesia, with fluctuations Category: Medical Qualifiers: Dyskinesia presence: with dyskinesia Qualified Code(s): G20.B2 - Parkinson's disease with dyskinesia, with fluctuations Plan Increase Rytary 23.75/95- 3-2-3-2- to improve dyskinesias and fluctuations azilect 1mg qd Midodrine 5 mg qam Miralax as needed continue exercise Medications: Changed From carbidopa-levodopa 23.75-95 mg ER (Rytary) 3-2-2-2 orally 4 times a day; 3-2-2-2 360 caps 6RF To carbidopa-levodopa 23.75-95 mg ER (Rytary) 3-2-3-2 orally 4 times a day; 3-2-3-2 300 caps 6RF Coding Level of Care Code Est Pt Level 4 (50662) Complex EM visit Add On G2211 Diagnoses Parkinson's disease with dyskinesia and fluctuating manifestations G20.B2 Dyskinesia presence: with dyskinesia
--- OUTSIDE RECORDS SUMMARY | 2025-06-11 17:47 | XMS_ITS | Encounter Summary ---
Author Organization [facility] Address [address] [address] Phone Care Team Providers Care Pick Pulling Machine Tender Name Role Phone Shamar Jacobs MD Primary Care Provider [phone] Encounter Details Date Type Department Care Team (Latest Contact Info) Description 05/28/2017 Transcribe Orders [address] [address] Jose Luis Garcia MD [facility], [address] [place] [address] [email or web address] Elevated prostate specific antigen (PSA) (Primary Dx) Social History Tobacco Use Types Packs/Day Years Used Date Smoking Tobacco: Never Assessed Sex and Gender Information Value Date Recorded Sex Assigned at Not on file Legal Sex Male 10:10 PM EDT Gender Identity Not on file Sexual Orientation Not on file documented as of this encounter Plan of Treatment Not on file documented as of this encounter Procedures Procedure Name Priority Date/Time Associated Diagnosis Comments PSA (SCREENING) Routine 05/28/2017 11:53 AM EST Elevated prostate specific antigen (PSA) documented in this encounter Results * (ABNORMAL) PSA (screening) (05/28/2017 11:53 AM EST) PSA 10.55(H) 0 - 4.00 ng/mL [facility] Blood 05/28/2017 11:5 3 AM EST 05/28/2017 11:55 AM EST us Jose Luis Garcia MD LAB BLOOD BKR ORDERABLES Final Result [facility] [address] [place] [address] documented in this encounter Visit Diagnoses Diagnosis Elevated prostate specific antigen (PSA)- Primary documented in this encounter Care Teams Pick Pulling Machine Tender Relationship Specialty Start Date End Date Shamar Jacobs MD [email or web address] PCP - General Internal Medicine 05/28/17 documented as of this encounter Additional Source Comments The information contained in this document represents components of the legal health record. It is not the complete legal health record.[facility]
--- OUTSIDE RECORDS SUMMARY | 2025-06-11 17:47 | XMS_ITS | Encounter Summary ---
Author Organization [facility] Address [address] [address] Phone Care Team Providers Care Ortho/Prosthetic Aide Name Role Phone Shamar Jacobs MD Primary Care Provider [phone] Encounter Details Date Type Department Care Team (Latest Contact Info) Description 04/17/2018 Transcribe Orders [facility] [address] [place] [address] Haylie Valentino PA-C [address] [place] [address] Daphney SarwatBridger [address] [place] [address] [email or web address] Constipation, unspecified constipation type (Primary Dx) Social History Tobacco Use Types Packs/Day Years Used Date Smoking Tobacco: Never Assessed Sex and Gender Information Value Date Recorded Sex Assigned at Not on file Legal Sex Male 10:10 PM EDT Gender Identity Not on file Sexual Orientation Not on file documented as of this encounter Plan of Treatment Not on file documented as of this encounter Results * TSH (04/17/2018 3:38 PM EDT) TSH 1.78 0.27 - 4.20 uIU/mL [facility] Blood 04/17/2018 3:38 PM EDT 04/17/2018 3:42 PM EDT us Haylie Valentino PA-C LAB BLOOD BKR ORDERABLES Final Result [facility] [address] [place] [address] * C-Reactive Protein (04/17/2018 3:38 PM EDT) C REACTIVE PROTEIN 0.4 0.0 - 4.0 mg/L [facility] Blood 04/17/2018 3:38 PM EDT 04/17/2018 3:42 PM EDT us Haylie Valentino PA-C LAB BLOOD BKR ORDERABLES Final Result Performing Organization Address City/[facility]/ZIP Co de Phone Number [address] [address] * (ABNORMAL) CBC (04/17/2018 3:38 PM EDT) [facility] WBC 9.25 3.40 - 11.20 K/uL [facility] RBC 4.30(L) 4.50 - 5.50 M/uL [facility] HGB 14.0 13.0 - 17.0 g/dL [facility] HCT 41.8 40.0 - 51.0 % [facility] PLT 260 130 - 400 K/uL [facility] MCV 97.2 79.0 - 98.0 fL [facility] MCH 32.6 27.0 - 34.8 pg [facility] MCHC 33.5 31.5 - 36.0 g/dL [facility] RDW 12.3 10.8 - 14.6 % [facility] MPV 10.2 9.4 - 12.4 fl [facility] NRBC 0.00 /100 WBCs [facility] ABSOLUTE NRBC 0.00 K/uL [facility] Blood 04/17/2018 3:38 PM EDT 04/17/2018 3:42 PM EDT Haylie Valentino PA-C LAB BLOOD BKR ORDERABLES Final Result Performing Organization Address City/[facility]/ZIP Co de Phone Number [address] [address] * (ABNORMAL) Comprehensive metabolic panel (04/17/2018 3:38 PM EDT) Pathologist [facility] SODIUM 141 133 - 146 mmol/L [facility] POTASSIUM 4.2 3.3 - 5.1 mmol/L [facility] CHLORIDE 100 96 - 108 mmol/L [facility] CO2 28 21 - 35 mmol/L [facility] BUN 18 6 - 19 mg/dL [facility] CREATININE 1.00 0.5 - 1.5 mg/dL [facility] GLUCOSE 188(H) 70 - 99 mg/dL [facility] ALBUMIN 4.4 3.9 - 4.8 g/dL [facility] TOTAL PROTEIN 7.0 6.5 - 8.0 g/dL [facility] CALCIUM 9.7 8.4 - 10.3 mg/dL [facility] ALKALINE PHOSPHATASE 57 39 - 117 U/L [facility] TOTAL BILIRUBIN 0.4 0.0 - 1.2 mg/dL [facility] AST 22 0 - 37 U/L [facility] ALT 7 0 - 40 U/L [facility] GLOBULIN 2.6 1 - 4.8 g/dL [facility] EGFR 73 >59 mL/min/1.7 3m2 [facility] Comment:If patient is black, multiply result by 1.159. Estimated glomerular filtration rate calculated using the CKD-EPI equation. ANION GAP 17 10 - 20 mmol/L [facility] Blood 04/17/2018 3:38 PM EDT 04/17/2018 3:42 PM EDT us Haylie Valentino PA-C LAB BLOOD BKR ORDERABLES Final Result [address] [address] * Tissue transglutaminase IgA (04/17/2018 3:38 PM EDT) TTG IGA ANTIBODY <1.2 <4.0 (Negative) U/mL [facility] DPT OF LAB MED AND PAT+ Blood 04/17/2018 3:38 PM EDT 04/17/2018 3:42 PM EDT us Haylie Valentino PA-C LAB BLOOD BKR ORDERABLES Final Result [facility] DPT OF LAB MED AND PAT+ [address] [place] [address] * Immunoglobulin A (04/17/2018 3:38 PM EDT) IgA 125 70 - 400 mg/dL [facility] Blood 04/17/2018 3:38 PM EDT 04/17/2018 3:42 PM EDT us Haylie Valentino PA-C LAB BLOOD BKR ORDERABLES Final Result [facility] [address] [place] [address] documented in this encounter Visit Diagnoses Diagnosis Constipation, unspecified constipation type- Primary documented in this encounter Care Teams Ortho/Prosthetic Aide Relationship Specialty Start Date End Date Shamar Jacobs MD [email or web address] PCP - General Internal Medicine 05/28/17 documented as of this encounter Additional Source Comments The information contained in this document represents components of the legal health record. It is not the complete legal health record.[facility]
--- OUTSIDE RECORDS SUMMARY | 2025-06-11 17:47 | XMS_ITS | Clinical Summary ---
Author Organization [facility] Address [address] [address] Phone Care Team Providers Care Production Leader Name Role Phone Shamar Jacobs MD Primary Care Provider [phone] Social History Tobacco Use Types Packs/Day Years Used Date Smoking Tobacco: Never Assessed Education Answer Date Recorded Are you interested in more education? Not on ny e 11/17/2022 Are you concerned about learning? Not on file 11/17/2022 No 11/17/2022 No 11/17/2022 Digital Access Answer Date Recorded No 12/16/2022 No 12/16/2022 No 12/16/2022 Reliable internet access at home? Not on file 12/16/2022 Device with a working camera? Not on file Sex and Gender Information Value Date Recorded Sex Assigned at Not on file Legal Sex Male 10:10 PM EDT Gender Identity Not on file Sexual Orientation Not on file Plan of Treatment Health Maintenance Due Date Last Done Comments DEPRESSION SCREENING 1954 ZOSTER VACCINES (1 of 2) 1992 PNEUMOCOCCAL VACCINES (50+ years) (2 of 2 - PCV) 11/29/2011 11/28/2010 RSV VACCINE (1 - 1-dose 75+ series) 2017 Adult Td,Tdap Booster 12/02/2022 12/02/2012 INFLUENZA VACCINE (#1) 2025 0, 06/03/2019, 06/25/2012, Additional history exists COVID-19 VACCINE (2 - 2024- season) 2025 09/13/2020 HEPATITIS A VACCINES Aged Out No long er eligible based on patient's age to complete this topic HIB VACCINES Aged Out No longer eligi ble based on patient's age to complete this topic MENINGOCOCCAL VACCINES (ACWY) Aged Out No longer eligible based on patient's age to complete this topic MENINGOCOCCAL VACCINES (B) Aged Out N o longer eligible based on patient's age to complete this topic Medical Devices Not on file Insurance [employer] PPO MEDICARE PART A & B [employer] PPO MEDICARE PART A & B Member Subscriber Plan / Payer (Ef fective 2007-Present) Name:Cristobal Barajas Member ID:[id number] Relation to Subscriber:Self Name:Cristobal Barajas Subscriber ID:[id number] Payer ID:[id number] Group ID:Not on file Type:Medicare Address: [facility] [employer] [facility] [id number] AETNA PPO MEDICARE PART A & B AETNA PPO MEDICARE PART A & B T PPO MEDICARE PART A & B [employer] PPO MEDICARE PART A & B AET[employer] PPO MEDICARE PART A & B AETNA PPO MEDICARE PART A & B AETNA PPO MEDICARE PART A & B Care Teams Production Leader Relationship Specialty Start Date End Date Shamar Jacobs MD [email or web address] PCP - General Internal Medicine 05/28/17 Additional Source Comments The information contained in this document represents components of the legal health record. It is not the complete legal health record.[facility]
--- OUTSIDE RECORDS SUMMARY | 2025-06-11 17:47 | XMS_ITS | Encounter Summary ---
Author Organization [facility] Address [address] [address] Phone Care Team Providers Care Felt Hat Steamer Name Role Phone Shamar Jacobs MD Primary Care Provider [phone] Reason for Referral * Physical Therapy (Routine) - Closed Specialty Diagnoses / Procedures Referred By Contac t Referred To Contact Physical Therapy Diagnoses Parkinson disease System, Provider Not In, [facility] [address] [address] Phone: tel: Referral ID Status Reason Start Date Expiration Date Visits Re quested Visits Authorized [id number] Closed 08/28/2018 07/22/[phone] Encounter Details Date Type Department Care Team (Latest Contact Info) Description 08/28/2018 Transcribe Orders [facility] [address] [place] [id number] System, Provider Not In, [facility] [address] [address] Parkinson disease (Primary Dx) Social History Tobacco Use Types Packs/Day Years Used Date Smoking Tobacco: Never Assessed Sex and Gender Information Value Date Recorded Sex Assigned at Not on file Legal Sex Male 10:10 PM EDT Gender Identity Not on file Sexual Orientation Not on file documented as of this encounter Plan of Treatment Scheduled Referrals Name Type Priority Associated Diagnoses Order Schedule Ambulatory referral to [facility] Physical Therapy Outpatient Referral Routine Parkinson disease Ordered: 08/28/2018 documented as of this encounter Visit Diagnoses Diagnosis Parkinson disease- Primary Paralysis agitans documented in this encounter Care Teams Felt Hat Steamer Relationship Specialty Start Date End Date Shamar Jacobs MD [email or web address] PCP - General Internal Medicine 05/28/17 documented as of this encounter Additional Source Comments The information contained in this document represents components of the legal health record. It is not the complete legal health record.[facility]
== END 2025-06-11 12:09 | disposition home or self-care (01) ==
LOC: HO.HSMS 11:29
PROVIDERS: PCP Internal Medicine; Visit Provider Psychiatry & Neurology Neurology
DX: G20.B2 Parkinson's disease with dyskinesia, with fluctuations (principal)
CPT/HCPCS: 99214; G2211

== ENCOUNTER → 2025-06-11 11:28 | Outpatient (BNVA) | payer MEDICARE, OTHER, SELFPAY | PROVIDERS: PCP Internal Medicine; Visit Provider Psychiatry & Neurology Neurology | DX: G20.B2 Parkinson's disease with dyskinesia, with fluctuations (principal) | CPT/HCPCS: 99212 ==